=== PATIENT | female | born 1985 | race Caucasian/White ===

== ENCOUNTER 2016-07-25 19:21 | Emergency (ER) | payer OTHER | END 2016-07-25 20:03 | disposition home or self-care (01) | LOC: ER 19:21 | DX: Z53.21 Procedure and treatment not carried out due to patient leaving prior to being seen by health care provider (principal) | CPT/HCPCS: J1885 ==

== ENCOUNTER 2016-07-25 22:49 | Emergency (ER) | payer OTHER | END 2016-07-25 23:48 | disposition home or self-care (01) | LOC: ER 22:49 | DX: M51.17 Intervertebral disc disorders with radiculopathy, lumbosacral region (principal); J45.909 Unspecified asthma, uncomplicated; Z90.710 Acquired absence of both cervix and uterus; Z98.890 Other specified postprocedural states; Z88.0 Allergy status to penicillin; Z88.8 Allergy status to other drugs, medicaments and biological substances; Z91.012 Allergy to eggs | CPT/HCPCS: 96374 ==